=== PATIENT | male | born 1985 | race Caucasian/White ===

== ENCOUNTER → 2017-05-17 | Outpatient (CLI) | payer MEDICAID | END | disposition home or self-care (01) | LOC: CFH 10:53 | PROVIDERS: ATTEND Genetic Counselor, MS | DX: E04.1 Nontoxic single thyroid nodule (principal) | CPT/HCPCS: 76536 ==

== ENCOUNTER → 2018-02-27 | Outpatient (CLI) | payer BC, OTHER ==
[~2018-02-27] MED LIST: TYROSINE PO
== END ==
LOC: STAR 10:39
PROVIDERS: ATTEND Surgery
DX: Z02.9 Encounter for administrative examinations, unspecified (principal)